=== PATIENT | female | born 1975 | race Caucasian/White ===

== ENCOUNTER 2017-02-05 09:41 | Emergency (ER) | payer BC, OTHER ==
--- NOTE | ~2017-02-05 | CT4 ---
[facility] A Service of [facility] RADIOLOGY TEXT RESULTS PATIENT: CHET HUMPHREYS LOCATION: SED : 79 UNIT #: [id number] AGE: [address]: Vinh Richter MD SEX: F ORDER DR: [id number] [address] [address] [id number] E MR#: [id number] Acc #: [id number] NAME: CHET HUMPHREYS : 1975 SEX: F STUDY DATE/TIME: 02/05/2017 UNIT: SED ROOM: STUDY DESCRIPTION: CT Abd and Pelv Wo Cont Attending Physician: Vinh Richter M.D. Ordering Physician: Vinh Richter M.D. Primary Care Physician: Cj Engle M.D. MEDICAL IMAGING REPORT This report is preliminary unless electronic signature is present. EXAM CT abdomen and pelvis, without contrast, 02/05/2017, 1042 hours. HISTORY 41-year-old woman with 2-day history of right-sided abdominal pain and back pain with nausea. Right lower quadrant pain. COMPARISON STUDIES CT angiogram of the chest, 12/27/2010. No prior CT of the abdomen for comparison. TECHNIQUE Helical noncontrasted images were obtained from the lung bases through the pubic symphysis. Sagittal and coronal reconstructions were performed. Total exam DLP 1029 mGy-cm. This CT exam was performed with one or more of the following radiation dose reduction techniques: automatic exposure control, adjustment of mA and/or kV according to patient size, and iterative reconstruction. FINDINGS Images through the lung bases are clear. There are no effusions. The distal esophagus is normal. Noncontrasted images through the abdomen demonstrate a normal appearance to the liver, spleen, pancreas, and bile ducts. There are clips consistent with prior cholecystectomy. The adrenal glands are normal. Noncontrasted images of the kidneys demonstrate no mass, stone or obstruction. There is no ureterectasis or ureteral calculus. The stomach contains food debris, but there is no wall thickening. There is no small bowel distention or small bowel wall thickening. The appendix [facility] A Service of [facility] RADIOLOGY TEXT RESULTS PATIENT: CHET HUMPHREYS LOCATION: SED : 79 UNIT #: [id number] AGE: [address]: Vinh Richter MD SEX: F ORDER DR: is surgically absent. The terminal ileum and cecum are normal. There is no colonic distention or colonic wall thickening. There are a few scattered uncomplicated diverticula of the descending colon and sigmoid colon. CT pelvis demonstrates surgical absence of the uterus. There is a complex appearance in the right adnexa, which I believe is the right ovary. There is a history of partial hysterectomy. There is a more dense ovoid nodule anteromedially, measuring 3.8 x 4.0 x 4.3 cm. Abutting this posterolaterally, is a more low density lesion measuring 3.8 x 2.5 x 3.1 cm. This has a more benign appearance. The more anteromedial larger lesion has a density which could indicate a solid lesion or hemorrhagic or proteinaceous cystic lesion. There is a left-sided structure in the pelvis measuring 3.4 x 2.5 cm, which is most likely a normal left ovary. IMPRESSION 1. No acute findings in the abdomen. The gallbladder and appendix are surgically absent. 2. No renal or ureteral calculi. 3. Patient has had a hysterectomy. I believe both ovaries are present. Within the right ovary, there are 2 ovoid lesions. The more superior and medial is denser, measuring 3.8 x 4.0 x 4.3 cm. This could represent a solid mass or dense lesion such as a hemorrhagic or proteinaceous cyst. The more lateral lesion is slightly smaller, measuring up to 3.8 cm, and has a more benign cystic appearance. Further evaluation with pelvic ultrasound is recommended to attempt to assess whether this is a complex cyst or solid lesion. 4. Left ovary is demonstrated, appearing normal, measuring 3.4 x 2.5 cm. 5. There are scattered uncomplicated diverticula in the colon. STAT * RESULT Dictated by... Agustina Ramirez M.D. THIS IS AN ELECTRONICALLY VERIFIED REPORT Agustina Ramirez M.D. at 02/05/2017 1:19 PM BRYAN/connie TD: 02/05/2017 11:08 JOB #: [id number] MEDICAL IMAGING REPORT Page 1 of 1
[~2017-02-05 09:41] MED LIST: ALBUTEROL MININEB NEB; ALBUTEROL17 GM INH; AMOXICILLIN875 MG PO; AUGMENTIN875 M1 PO; BIRTH CONTROL PO; DELTASONE20 MG PO; EFFEXOR37.5 MG PO; FLEXERIL; FLEXERIL10 MG PO; LAMICTAL PO; LAMISIL; LORTAB 5/500 TA1 TA1 PO; MEDROL4 MG/DOSE- PO; MULTIVITAMINS; NAPROSYN500 MG PO; PERCOCET 7.5/321 TAB PO; PHENERGAN DM1 ML PO; PHENERGAN25 M1 PO; PROMETHAZINE D118 ML PO; ROBAXIN500 MG PO; SILVADENE TOP; TYLENOL #3; TYLENOL #3 PO; TYLENOL COLD &1 EACH PO; ULTRAM PO; VOLTAREN50 MG PO; VOLTAREN75 MG PO; ZITHROMAX1 G/PKT PO; ZOLOFT
[2017-02-05 10:10] LABS: URINE SOURCE CLEAN CATCH
[2017-02-05 10:11] LABS: URINE APPEARANCE CLEAR; URINE BILIRUBIN NEG (NEG); URINE BLOOD NEG (NEG); URINE COLOR YELLOW; URINE GLUCOSE NEG (NORM); URINE KETONE NEG (NEG); URINE LEUKOCYTE ESTERASE NEG (NEG); URINE NITRATE NEG (NEG); URINE PROTEIN NEG (NEG); URINE SPECIFIC GRAVITY 1.025 (1.003-1.035); URINE UROBILINOGEN 0.2 MG/DL (NORM)
[2017-02-05 10:12] LABS: MICRO INDICATED? NO
[2017-02-05 11:06] LABS: BASOPHIL# 0.1 X10e3 (0-0.3); BASOPHIL% 0.7 % (0-2.5); EOSINOPHIL# 0.3 X10e3 (0-0.7); EOSINOPHIL% 2.7 % (0.0-7.0); HEMATOCRIT 41.4 % (35.0-45.0); HEMOGLOBIN 14.2 gm/dL (12.0-16.0); LYMPHOCYTE# 2.4 X10e3 (1.0-3.5); MEAN CELL VOLUME 90.6 FL (83-96); MEAN CORPUSCULAR HEMOGLOBIN 31.1 PG (28-34); MEAN CORPUSCULAR HGB CONC 34.3 g/dL (30-36); MEAN PLATELET VOLUME 7.5 FL (6.5-11.5); MONOCYTE% 9.2 % (3.0-12.0); NEUTROPHIL# 6.8 X10e3 (1.5-7.1); NEUTROPHIL% 64.4 % (40-75); PLATELET COUNT 266 X10e3 (140-420); RED BLOOD COUNT 4.57 X10e (3.90-5.30); RED CELL DISTRIBUTION WIDTH 13.1 % (11.0-15.5); WHITE BLOOD COUNT 10.5 X10e3 (4.0-10.5)
[2017-02-05 11:19] LABS: DIFF IND NO
[2017-02-05 11:33] LABS: ALKALINE PHOSPHATASE 57 U/L (32-92); ALT (SGPT) 14 U/L (10-40); AMYLASE 20 U/L (0-46); AST (SGOT) 14 U/L (10-42); BILIRUBIN, DIRECT 0.1 mg/dL (0.0-0.2); BILIRUBIN,INDIRECT 0.4 mg/dL (0.0-0.9); BILIRUBIN,TOTAL 0.5 mg/dL (0.2-2.0); BLOOD UREA NITROGEN 17 mg/dL (9-23); CALCIUM SERUM 8.2 mg/dL (8.4-10.2); CARBON DIOXIDE 22 mmol/L (22-31); CHLORIDE 102 mmol/L (100-111); CREATININE SERUM 0.5 mg/dL (0.6-1.4); GLOM FILT RATE Estimated ABOVE60 mL/min (>60); GLUCOSE FASTING 93 mg/dL (70-110); LIPASE 27 U/L (22-51); POTASSIUM 3.7 mmol/L (3.5-5.1); PROTEIN TOTAL SERUM 6.9 g/dL (6.0-8.3); SODIUM 129 mmol/L (135-145)
== END 2017-02-05 12:41 | disposition home or self-care (01) ==
LOC: SED 09:41
PROVIDERS: Emergency Medicine
DX: N83.202 Unspecified ovarian cyst, left side (principal); R10.31 Right lower quadrant pain; F17.200 Nicotine dependence, unspecified, uncomplicated; Z90.49 Acquired absence of other specified parts of digestive tract; Z90.710 Acquired absence of both cervix and uterus
CPT/HCPCS: 36415; 74176; 80048; 80076; 81003; 82150; 83690; 85025; 96374; 96375; 99284; J1885; J2405